=== PATIENT | male | born 1965 | race Caucasian/White ===

== ENCOUNTER 2020-02-09 00:15 | Emergency (ER) | payer MEDICAID ==
[~2020-02-09] VITALS: Ht 170.2 cm; Wt 73.0 kg
[2020-02-09 00:34] VITALS: BP 106/68
[2020-02-09] MEDS ORDERED: BACITRACIN ZINC OINT UDPKT TOP ONE (02:15)
== END 2020-02-09 02:24 | disposition home or self-care (01) ==
LOC: ER 00:15
DX: S61.212A Laceration without foreign body of right middle finger without damage to nail, initial encounter (principal); X58.XXXA Exposure to other specified factors, initial encounter; Y93.89 Activity, other specified; Y92.89 Other specified places as the place of occurrence of the external cause; Y99.8 Other external cause status
CPT/HCPCS: 99283